=== PATIENT | female | born 1960 | race Caucasian/White ===

== ENCOUNTER 2017-07-17 14:26 | Emergency (ER) | payer OTHER ==
[~2017-07-17] VITALS: Ht 162.6 cm; Wt 45.5 kg
[~2017-07-17 14:26] MED LIST: LORT7.5T3 PO; Z.0.NO CURRENT MEDS
[2017-07-17] MEDS ORDERED: IOHEXOL 350 MG/ML 10 ML VIAL (for RAD DIAG) IVCONTRAST ONE (14:27)
[2017-07-17 14:37] VITALS: BP 164/89; PULSE 78; RESP 18; TEMP 97.7; O2SAT 98
[2017-07-17] MEDS ORDERED: TETANUS/DIPHTHERIA TOXOID ADULT 0.5 ML VIAL IM ONE (14:45)
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
[2017-07-17 15:32] LABS: AUTOMATED NEUTROPHIL # 7.3 TH/MM3 (1.8-7.7); BASOPHIL # 0.1 TH/MM3 (0-0.2); BASOPHIL % 0.5 % (0.0-2.0); EOSINOPHIL # 0.1 TH/MM3 (0-0.4); EOSINOPHIL % 0.9 % (0.0-4.0); HEMATOCRIT 37.8 % (35.0-46.0); HEMOGLOBIN 12.8 GM/DL (11.6-15.3); LYMPH % 16.9 % (9.0-44.0); LYMPHOCYTE # 1.7 TH/MM3 (1.0-4.8); MEAN CELL VOLUME 94.9 FL (80.0-100.0); MEAN CORPUSCULAR HEMOGLOBIN 32.2 PG (27.0-34.0); MEAN PLATELET VOLUME 9.2 FL (7.0-11.0); MONO % 6.8 % (0.0-8.0); MONOCYTE # 0.7 TH/MM3 (0-0.9); NEUT % 74.9 % (16.0-70.0); PLATELET COUNT 212 TH/MM3 (150-450); RED BLOOD COUNT 3.98 MIL/MM3 (4.00-5.30); RED CELL DISTRIBUTION WIDTH 13.1 % (11.6-17.2); WHITE BLOOD COUNT 9.8 TH/MM3 (4.0-11.0)
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
[2017-07-17 15:38] LABS: PROTHROMBIN TIME - PATIENT 10.2 SEC (9.8-11.6)
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
[2017-07-17 15:50] LABS: BICARBONATE 22.5 MEQ/L (21.0-32.0); CALCIUM 8.6 MG/DL (8.5-10.1); CREATININE 0.69 MG/DL (0.50-1.00)
[2017-07-17] MEDS ORDERED: METOCLOPRAMIDE HCL 10 MG/2 ML VIAL IV PUSH ONE (16:00)
[2017-07-17] MEDS ORDERED: MORPHINE SULFATE 4 MG/ML INJ IV PUSH ONE (16:00)
[2017-07-17] MEDS ORDERED: LIDOCAINE HCL 1% PF 30 ML VIAL INFIL ONE (16:00)
[2017-07-17 16:04] VITALS: BP 148/85; PULSE 86; RESP 18; TEMP 97.8; O2SAT 98
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
[2017-07-17 16:33] VITALS: RESP 16
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
[2017-07-17] MEDS ORDERED: AMOX500T PO (17:43)
[2017-07-17] MEDS ORDERED: DICL75TA PO (17:43)
[2017-07-17] MEDS ORDERED: HYDR-3516 PO (17:43)
[2017-07-17] MEDS ORDERED: IBUPROFEN 800 MG TAB PO ONE (17:45)
[2017-07-17 18:05] VITALS: BP 130/77; TEMP 97.7
[2017-07-17] MEDS ORDERED: PROC10TA PO (18:14)
== END 2017-07-17 18:05 | disposition home or self-care (01) ==
LOC: NEPE 14:26
DX: S02.2XXA Fracture of nasal bones, initial encounter for closed fracture (principal); S01.21XA Laceration without foreign body of nose, initial encounter; S42.255A Nondisplaced fracture of greater tuberosity of left humerus, initial encounter for closed fracture; F17.200 Nicotine dependence, unspecified, uncomplicated; Z88.5 Allergy status to narcotic agent; Z23 Encounter for immunization; V03.90XA Pedestrian on foot injured in collision with car, pick-up truck or van, unspecified whether traffic or nontraffic accident, initial encounter
CPT/HCPCS: 12011; 29240; 70450; 70486; 71045; 71260; 72125; 72170; 73030; 73060; 73090; 73610; 73630; 80048; 83735; 85025; 85610; 85730; 90471; 90714; 96374; 96375; 99285; J2270; J2765; Q9967